=== PATIENT | male | born 1955 ===

== ENCOUNTER 2023-07-03 17:23 | Inpatient (IN) | payer OTHER ==
[~2023-07-03] VITALS: Ht 182.9 cm; Wt 109.9 kg
[2023-07-03 17:25] VITALS: PULSE 108; RESP 14; O2SAT 98
[2023-07-03 17:45] VITALS: BP 78/40; PULSE 104; RESP 18; O2SAT 93
[2023-07-03] MEDS ORDERED: NOREPINEPHRINE 8 MG/250ML KIT 250 ML IV SCH (17:45)
[2023-07-03] MEDS: NOREPINEPHRINE 8 MG/250ML KIT 250 ML IV ONE (17:45)
[2023-07-03] MEDS: NOREPINEPHRINE 8 MG/250ML KIT 250 ML IV SCH (18:07)
[2023-07-03 18:22] LABS: Basophils # (auto) 0 10 ^3/uL (0-0.2); Basophils % (auto) 0.5 % (0.0-2.0); Eosinophils # (auto) 0 10 ^3/uL (0-0.8); Eosinophils % (auto) 0.2 % (0.0-7.0); Lymphocytes # (auto) 1.1 10 ^3/uL (0.4-5.4); Lymphocytes % (auto) 24.6 % (10.0-50.0); Mean Corpuscular Hemoglobin 37.2 pg (28.0-32.0); Mean Corpuscular Hgb Conc. 32.3 g/dL (32.0-36.0); Monocytes # (auto) 0.2 10 ^3/uL (0-1.3); Monocytes % (auto) 5.6 % (0.0-12.0); Neutrophils % (auto) 69.1 % (37.0-80.0); Nucleated Red Blood Cells % 0.2 %; Red Blood Cells 2.95 10^6/uL (4.5-5.90); White Blood Cell 4.4 10^3/uL (4.4-10.8)
[2023-07-03 18:23] LABS: Red Cell Distribution Width 21.3 % (11.8-14.3)
[2023-07-03 18:25] LABS: Urine Bacteria None Seen /hpf (None Seen)
[2023-07-03] MEDS: MIDAZOLAM DRIP 50 mg/50mL 50 ML IV SCH (18:37)
[2023-07-03 18:40] LABS: Urine Blood 3+ /uL (Negative); Urine Clarity Turbid (Clear); Urine Color Dark-Yellow (Yellow); Urine Mucus FEW (None Seen); Urine Protein, UAD 1+ (Negative); Urine Specific Gravity 1.024 (1.001-1.035); Urine Urobilinogen OVER mg/dL (Negative); Urine WBC 47 /hpf (0 - 3); Urine WBC Clumps PRESENT /hpf (None Seen); Urine pH 6.5 (5.0-9.0)
[2023-07-03 18:41] LABS: Alanine Aminotransferase 201 U/L (7-40); Alkaline Phosphatase 258 U/L (46-116); Anion Gap 21 (5-15); Aspartate Aminotransferase 393 U/L (13-40); Blood Urea Nitrogen 15 mg/dL (9-23); Calcium 8.5 mg/dL (8.7-10.4); Carbon Dioxide 18 mmol/L (20-30); Chloride 97 mmol/L (98-107); Glucose 230 mg/dL (74-106); Magnesium 1.8 mg/dL (1.6-2.6); Potassium 3.3 mmol/L (3.5-5.1); Sodium 136 mmol/L (136-145); Total Protein 6.6 g/dL (5.7-8.2)
[2023-07-03 18:41] LABS: Amphetamine Screen, Urine Neg (NEGATIVE); Barbiturate Scree,Urine Neg (NEGATIVE); Benzodiazephine Screen, Urine Pos (NEGATIVE); Cannabinoid Screen, Urine Neg (NEGATIVE); Cocaine Screen, Urine Neg (NEGATIVE); Opiate Scree,Urine Neg (NEGATIVE)
[2023-07-03 18:42] LABS: Phencyclidine Screen, Urine Neg (NEGATIVE)
[2023-07-03 18:43] LABS: INR 1.28 (0.9-1.15); Partial Thromboplastin Time 30.1 SEC (24.5-34.5); Prothrombin Time 13.3 sec (9.3-11.8)
[2023-07-03] MEDS: PROPOFOL 100 ML IV SCH (18:47)
[2023-07-03] MEDS: PROPOFOL 100 ML IV ONE (18:48)
[2023-07-03 18:52] LABS: BUN/Creatinine Ratio 11.5 (10.0-20.0)
[2023-07-03] MEDS: LACTULOSE 20Gm/30ML SOLN NG ONE (19:15)
[2023-07-03 19:28] LABS: Base Excess -6.9 mmol/L (-2.0-2.0)
[2023-07-03 19:45] VITALS: PULSE 104; RESP 15; O2SAT 100
[2023-07-03 19:58] VITALS: BP 102/72; PULSE 105; RESP 22; O2SAT 100
[2023-07-03] MEDS: PIPERACILLIN-TAZO 4.5GM 100 ML IV ONE (20:55)
[2023-07-03 20:56] LABS: Base Excess -6.9 mmol/L (-2.0-2.0)
[2023-07-03 21:13] LABS: Anisocytosis Moderate; Macrocytosis Marked; Platelet Estimate Decreased
[2023-07-03 21:20] LABS: Alanine Aminotransferase 178 U/L (7-40); Albumin 2.7 g/dL (3.2-4.8); Alkaline Phosphatase 224 U/L (46-116); Anion Gap 15 (5-15); Aspartate Aminotransferase 377 U/L (13-40); Blood Urea Nitrogen 11 mg/dL (9-23); Calcium 7.9 mg/dL (8.5-10.1); Carbon Dioxide 21 mmol/L (20-30); Chloride 103 mmol/L (98-107); Glucose 179 mg/dL (74-106); Potassium 2.8 mmol/L (3.5-5.1); Sodium 139 mmol/L (136-145)
[2023-07-03 21:21] LABS: Bilirubin, Total 10.5 mg/dL (0.2-1.0); Total Protein 5.6 g/dL (5.7-8.2)
[2023-07-03 21:51] LABS: Lactic Acid w/Reflex 9.1 mmol/L (0.4-2.0)
[2023-07-03 22:08] VITALS: BP 105/73; PULSE 89; RESP 24; O2SAT 99
[2023-07-03] MEDS ORDERED: MORPHINE SULFATE INJ 2 MG/ml SYRG IV PRN (22:45)
[2023-07-03] MEDS ORDERED: ONDANSETRON HCL 4 MG/2 ML VIAL IV PRN (22:45)
[2023-07-03] MEDS ORDERED: NITROGLYCERIN 0.4 MG SL TAB SL PRN (22:45)
[2023-07-03] MEDS ORDERED: ACETAMINOPHEN 325 MG TAB PO PRN (22:45)
[2023-07-04] VITALS (105 sets, daily range): BP systolic 86–122; BP diastolic 39–87; PULSE 70–100; RESP 11–36; TEMP 36.6; O2SAT 93–100
[2023-07-04] MEDS: SODIUM CHLORIDE 0.9% 1,000 ML IV SCH ×2 (00:53→01:19)
[2023-07-04] MEDS: POTASSIUM CHL 20MEQ/100ML 100 ML IV ONE ×2 (00:53→12:10)
[2023-07-04] MEDS: SODIUM CHLORIDE 0.9% 500 ML IV ONE (01:15)
[2023-07-04] MEDS: LACTULOSE 10g/15ml SOLN 473ML PR SCH (01:19)
[2023-07-04] MEDS: LACTULOSE 20Gm/30ML SOLN ONE (01:20)
[2023-07-04] MEDS: AZITHROMYCIN 500MG/ 250ML 250 ML IV ONE (01:20)
[2023-07-04 04:11] LABS: Basophils # (auto) 0 10 ^3/uL (0-0.2); Eosinophils # (auto) 0 10 ^3/uL (0-0.8); Hemoglobin 9.2 g/dL (13.5-17.5); Mean Corpuscular Hgb Conc. 34.7 g/dL (32.0-36.0); Monocytes # (auto) 0.2 10 ^3/uL (0-1.3); Neutrophils # (auto) 3.3 10 ^3/uL (1.6-8.6); White Blood Cell 3.7 10^3/uL (4.4-10.8)
[2023-07-04 04:15] LABS: Basophils % (auto) 0.4 % (0.0-2.0); Hematocrit 26.5 % (41.0-53.0); Lymphocytes # (auto) 0.1 10 ^3/uL (0.4-5.4); Mean Corpuscular Hemoglobin 38.4 pg (28.0-32.0); Mean Corpuscular Volume 110.9 fL (80.0-100.0); Monocytes % (auto) 4.9 % (0.0-12.0); Neutrophils % (auto) 90.7 % (37.0-80.0); Nucleated Red Blood Cells % 0.1 %; Red Blood Cells 2.39 10^6/uL (4.5-5.90)
[2023-07-04 04:33] LABS: Alanine Aminotransferase 172 U/L (7-40); Albumin 2.7 g/dL (3.2-4.8); Alkaline Phosphatase 195 U/L (46-116); Anion Gap 9 (5-15); Aspartate Aminotransferase 349 U/L (13-40); Blood Urea Nitrogen 13 mg/dL (9-23); Calcium 8.1 mg/dL (8.5-10.1); Carbon Dioxide 27 mmol/L (20-30); Chloride 101 mmol/L (98-107); Glucose 141 mg/dL (74-106); Potassium 3.4 mmol/L (3.5-5.1); Sodium 137 mmol/L (136-145)
[2023-07-04 04:34] LABS: Bilirubin, Total 9.8 mg/dL (0.2-1.0); Total Protein 5.5 g/dL (5.7-8.2)
[2023-07-04 04:36] LABS: Red Cell Distribution Width 20.7 % (11.8-14.3)
[2023-07-04 04:49] LABS: BUN/Creatinine Ratio 12.5 (10.0-20.0)
[2023-07-04 06:37] LABS: Lactic Acid w/Reflex 5.3 mmol/L (0.4-2.0)
[2023-07-04 07:30] LABS: Base Excess -0.1 mmol/L (-2.0-2.0)
[2023-07-04] MEDS: cefTRIAXone 1GM/50ML D5W 50 ML IV SCH (09:42)
[2023-07-04] MEDS: MAGNESIUM SULFATE 1GM/100ML 100 ML IV SCH (12:10)
[2023-07-04] MEDS: SODIUM BICARB 8.4% 50Meq/50ml SYR Vial IV ONE (13:39)
[2023-07-04] MEDS: ALBUMIN 25% 100 ML IV SCH (18:07)
[2023-07-04] MEDS: FOLIC ACID 1 MG, MAGNESIUM SULF SDV 50% 8 MEQ, MULTIPLE VITAMIN 10 ML, THIAMINE INJ 100... INJ SCH (18:38)
[2023-07-04] MEDS ORDERED: VANCOMYCIN PER PHARMACY 0 MG IV SCH (18:45)
[2023-07-04] MEDS ORDERED: MORPHINE SULFATE 4 MG/ML SYR/VIAL IV PRN (19:00)
[2023-07-04] MEDS: VANCOMYCIN 1GM/200ML 200 ML IV ONE (19:58)
[2023-07-04 20:12] LABS: Hematocrit 25.8 % (41.0-53.0); Hemoglobin 8.8 g/dL (13.5-17.5)
[2023-07-04] MEDS ORDERED: AZITHROMYCIN 500MG/ 250ML 250 ML IV SCH (22:00)
[2023-07-05] VITALS (109 sets, daily range): BP systolic 91–136; BP diastolic 56–100; PULSE 67–96; RESP 16–23; TEMP 95.2–99; O2SAT 93–100
[2023-07-05] MEDS: LACTULOSE 20Gm/30ML SOLN PO PRN (01:44)
[2023-07-05 03:54] LABS: Basophils # (auto) 0 10 ^3/uL (0-0.2); Eosinophils # (auto) 0 10 ^3/uL (0-0.8); Lymphocytes # (auto) 0.3 10 ^3/uL (0.4-5.4); Monocytes # (auto) 0.2 10 ^3/uL (0-1.3); Neutrophils # (auto) 2.7 10 ^3/uL (1.6-8.6); Nucleated Red Blood Cells % 0.1 %; White Blood Cell 3.2 10^3/uL (4.4-10.8)
[2023-07-05 03:55] LABS: Chloride 107 mmol/L (98-107); Sodium 141 mmol/L (136-145)
[2023-07-05 03:56] LABS: Calcium 7.7 mg/dL (8.5-10.1)
[2023-07-05 03:57] LABS: Basophils % (auto) 0.1 % (0.0-2.0); Hematocrit 23.7 % (41.0-53.0); Hemoglobin 8.2 g/dL (13.5-17.5); Mean Corpuscular Hemoglobin 38.5 pg (28.0-32.0); Mean Corpuscular Hgb Conc. 34.4 g/dL (32.0-36.0); Mean Corpuscular Volume 111.9 fL (80.0-100.0); Monocytes % (auto) 5.5 % (0.0-12.0); Neutrophils % (auto) 84.4 % (37.0-80.0); Red Blood Cells 2.12 10^6/uL (4.5-5.90)
[2023-07-05 04:01] LABS: Glucose 106 mg/dL (74-106); Triglycerides 311 mg/dL (< 150)
[2023-07-05 04:02] LABS: BUN/Creatinine Ratio 13.7 (10.0-20.0); Blood Urea Nitrogen 10 mg/dL (9-23); LDL Cholesterol 98 mg/dL (< 100)
[2023-07-05 04:03] LABS: Cholesterol 175 mg/dL (< 200); HDL Cholesterol 7 mg/dL (40-59)
[2023-07-05 04:21] LABS: Potassium 2.5 mmol/L (3.5-5.1)
[2023-07-05 04:33] LABS: Anion Gap 8 (5-15); Carbon Dioxide 26 mmol/L (20-30)
[2023-07-05] MEDS: POTASSIUM CHL 20MEQ/100ML 100 ML IV SCH ×2 (05:02→18:30)
[2023-07-05 06:41] LABS: Base Excess 1.5 mmol/L (-2.0-2.0)
[2023-07-05 09:25] LABS: Free T3 2.7 pg/mL (2.3-4.2)
[2023-07-05 09:26] LABS: Free T4 (Free Thyroxine) 0.26 ng/dL (0.89-1.76); T3 Total 0.16 ng/mL (0.60-1.81)
[2023-07-05] MEDS ORDERED: LACTULOSE 20Gm/30ML SOLN PO PRN (09:30)
[2023-07-05] MEDS: PANTOPRAZOLE 40 MG/10 ML VIAL INJ IV SCH (09:35)
[2023-07-05] MEDS: VANCOMYCIN 1GM/200ML 200 ML IV SCH (09:54)
[2023-07-05] MEDS: LACTULOSE 20Gm/30ML SOLN PO SCH (09:58)
[2023-07-05 10:36] LABS: Bilirubin, Direct 6.9 mg/dL (<0.3); Bilirubin, Total 8.9 mg/dL (0.2-1.0)
[2023-07-05] MEDS ORDERED: hydrALAZINE HCL 20 MG/ML VL IV PRN (16:45)
[2023-07-05 17:39] LABS: Magnesium 1.9 mg/dL (1.6-2.6)
[2023-07-05] MEDS: POTASSIUM CHL 20MEQ/100ML 100 ML IV ONE (18:28)
[2023-07-06] VITALS (110 sets, daily range): BP systolic 96–144; BP diastolic 65–104; PULSE 80–103; RESP 14–26; TEMP 97–99; O2SAT 82–100
[2023-07-06 05:52] LABS: Basophils # (auto) 0 10 ^3/uL (0-0.2); Basophils % (auto) 0.4 % (0.0-2.0); Eosinophils # (auto) 0 10 ^3/uL (0-0.8); Eosinophils % (auto) 0.3 % (0.0-7.0); Hematocrit 25.7 % (41.0-53.0); Hemoglobin 8.7 g/dL (13.5-17.5); Lymphocytes # (auto) 0.4 10 ^3/uL (0.4-5.4); Mean Corpuscular Hemoglobin 38.8 pg (28.0-32.0); Mean Corpuscular Hgb Conc. 33.9 g/dL (32.0-36.0); Mean Corpuscular Volume 114.2 fL (80.0-100.0); Monocytes # (auto) 0.3 10 ^3/uL (0-1.3); Monocytes % (auto) 8.3 % (0.0-12.0); Neutrophils # (auto) 2.7 10 ^3/uL (1.6-8.6); Nucleated Red Blood Cells % 0.1 %; Red Blood Cells 2.25 10^6/uL (4.5-5.90); White Blood Cell 3.4 10^3/uL (4.4-10.8)
[2023-07-06 05:53] LABS: Red Cell Distribution Width 20.9 % (11.8-14.3)
[2023-07-06 05:57] LABS: Chloride 110 mmol/L (98-107); Potassium 3.5 mmol/L (3.5-5.1); Sodium 141 mmol/L (136-145)
[2023-07-06 05:58] LABS: Anion Gap 8 (5-15); Calcium 7.6 mg/dL (8.7-10.4); Carbon Dioxide 23 mmol/L (20-30)
[2023-07-06 06:03] LABS: Blood Urea Nitrogen 10 mg/dL (9-23); Glucose 91 mg/dL (74-106)
[2023-07-06 06:11] LABS: BUN/Creatinine Ratio 12.3 (10.0-20.0)
[2023-07-06 07:45] LABS: Base Excess -2.1 mmol/L (-2.0-2.0)
[2023-07-06] MEDS ORDERED: Jevity 1.2 Cal/Fiber 1 Liter GT SCH (09:00)
[2023-07-06] MEDS: VANCOMYCIN 1GM/200ML 200 ML IV SCH (20:06)
[2023-07-07] VITALS (69 sets, daily range): BP systolic 99–126; BP diastolic 69–90; PULSE 79–101; RESP 16–37; TEMP 96.3–98.8; O2SAT 78–98
[2023-07-07 04:15] LABS: Basophils # (auto) 0 10 ^3/uL (0-0.2); Eosinophils # (auto) 0 10 ^3/uL (0-0.8); Monocytes # (auto) 0.4 10 ^3/uL (0-1.3); Neutrophils # (auto) 3.4 10 ^3/uL (1.6-8.6); Nucleated Red Blood Cells % 0.4 %; White Blood Cell 4.3 10^3/uL (4.4-10.8)
[2023-07-07 04:17] LABS: Basophils % (auto) 0.6 % (0.0-2.0); Eosinophils % (auto) 0.2 % (0.0-7.0); Hematocrit 27.6 % (41.0-53.0); Hemoglobin 9.4 g/dL (13.5-17.5); Lymphocytes # (auto) 0.5 10 ^3/uL (0.4-5.4); Lymphocytes % (auto) 11.9 % (10.0-50.0); Mean Corpuscular Hemoglobin 39.5 pg (28.0-32.0); Mean Corpuscular Hgb Conc. 34.1 g/dL (32.0-36.0); Mean Corpuscular Volume 115.6 fL (80.0-100.0); Monocytes % (auto) 8.9 % (0.0-12.0); Neutrophils % (auto) 78.4 % (37.0-80.0); Red Blood Cells 2.39 10^6/uL (4.5-5.90); Red Cell Distribution Width 21.6 % (11.8-14.3)
[2023-07-07 04:39] LABS: Hypochromia Slight; Platelet Estimate Adequate; Stomatocytes Many
[2023-07-07 04:42] LABS: Alanine Aminotransferase 141 U/L (7-40); Alkaline Phosphatase 282 U/L (46-116); Anion Gap 9 (5-15); Calcium 8.1 mg/dL (8.7-10.4); Carbon Dioxide 20 mmol/L (20-30); Chloride 112 mmol/L (98-107); Glucose 101 mg/dL (74-106); Potassium 3.2 mmol/L (3.5-5.1); Sodium 141 mmol/L (136-145)
[2023-07-07 04:43] LABS: Albumin 2.9 g/dL (3.2-4.8); Aspartate Aminotransferase 286 U/L (13-40); Bilirubin, Total 10.5 mg/dL (0.2-1.0); Total Protein 5.7 g/dL (5.7-8.2)
[2023-07-07 04:55] LABS: BUN/Creatinine Ratio 10.3 (10.0-20.0); Blood Urea Nitrogen 10 mg/dL (9-23)
[2023-07-07 07:39] LABS: Base Excess -5.1 mmol/L (-2.0-2.0)
[2023-07-07] MEDS: LEVOTHYROXINE SODIUM 100 MCG/5 ML INJ IV SCH (09:08)
[2023-07-07] MEDS: POTASSIUM CHL 20MEQ/100ML 100 ML IV SCH (10:08)
[2023-07-07] MEDS ORDERED: MORPHINE SULFATE 4 MG/ML SYR/VIAL IV PRN (15:15)
[2023-07-07] MEDS ORDERED: GLYCOPYRROLATE 0.2 MG/ML 1ML VIAL IV PRN (15:15)
[2023-07-07] MEDS: LORazepam 2MG/ML-1ML VIAL IV PRN (15:57)
[2023-07-07] MEDS: MORPHINE SULFATE 4 MG/ML SYR/VIAL IV PRN (16:07)
== END 2023-07-07 17:35 | DRG 871 ==
LOC: EDBD 17:23 → ER 17:23 → TELE 22:36 → ICU WEST 22:36
PROVIDERS: ADMIT Nurse Practitioner; ATTEND Student in an Organized Health Care Education/Training Program
PROC: 5A1945Z Respiratory Ventilation, 24-96 Consecutive Hours (ICD-10-PCS; principal; 2023-07-03)
PROC: 02H633Z Insertion of Infusion Device into Right Atrium, Percutaneous Approach (ICD-10-PCS; 2023-07-03)
DX: A41.9 Sepsis, unspecified organism (principal); G93.41 Metabolic encephalopathy; J96.01 Acute respiratory failure with hypoxia; R65.21 Severe sepsis with septic shock; R40.20 Unspecified coma; J69.0 Pneumonitis due to inhalation of food and vomit; J18.9 Pneumonia, unspecified organism; G93.1 Anoxic brain damage, not elsewhere classified; N17.9 Acute kidney failure, unspecified; J98.11 Atelectasis; F10.239 Alcohol dependence with withdrawal, unspecified; I46.9 Cardiac arrest, cause unspecified; Z66 Do not resuscitate; K44.9 Diaphragmatic hernia without obstruction or gangrene; D69.6 Thrombocytopenia, unspecified; E87.6 Hypokalemia; I48.91 Unspecified atrial fibrillation; K76.82 Hepatic encephalopathy; R56.9 Unspecified convulsions; J45.909 Unspecified asthma, uncomplicated; K70.30 Alcoholic cirrhosis of liver without ascites; E03.9 Hypothyroidism, unspecified; D53.9 Nutritional anemia, unspecified; K70.10 Alcoholic hepatitis without ascites; Y90.9 Presence of alcohol in blood, level not specified; Z79.899 Other long term (current) drug therapy; Z91.199 Patient's noncompliance with other medical treatment and regimen due to unspecified reason; Z51.5 Encounter for palliative care
CPT/HCPCS: 36415; 36600; 70450; 71045; 71275; 74018; 74176; 76705; 80048; 80053; 80061; 80202; 80307; 80320; 81001; 82140; 82247; 82248; 82805; 83036; 83605; 83735; 84132; 84439; 84443; 84480; 84481; 84484; 85014; 85018; 85025; 85379; 85610; 85730; 86850; 86900; 86901; 87040; 87070; 87077; 87081; 87186; 87205; 93005; 93306; 94002; 94003; 99291; C9113; G0378; J2543; J2704; J3480; J3490; P9047